=== PATIENT | male | born 1990 | race Two or more races ===

== ENCOUNTER 2021-06-21 02:10 | Inpatient (IN) | payer SELFPAY ==
[~2021-06-21] VITALS: Ht 167.6 cm; Wt 95.3 kg
--- NOTE | 2021-06-21 02:25 | PHYS DOC ---
General Adult HPI: HPI: Patient is a 31 year old male presents to the ER with left-sided arm pain. Patient states that he believes he was bit by an insect on the posterior portion of his right upper arm. Patient states that since then the pain has been extending reports chills and fevers. Denies any drainage. Patient states that the pain takes his breath away. Review of Systems: Review of Systems: Constitutional: Denies fever or chills. [] Eyes: Denies change in visual acuity. [] HENT: Denies nasal congestion or sore throat. [] Respiratory: Denies cough or shortness of breath. [] Cardiovascular: Denies chest pain or edema. [] GI: Denies abdominal pain, nausea, vomiting, bloody stools or diarrhea. [] : Denies dysuria. [] Musculoskeletal: Denies back pain or joint pain. [] Integument: Cellulitis of the left arm denies rash. [] Neurologic: Denies headache, focal weakness or sensory changes. [] Endocrine: Denies polyuria or polydipsia. [] Lymphatic: Denies swollen glands. [] Psychiatric: Denies depression or anxiety. [] Heart Score: C/O Chest Pain: No Risk Factors: Risk Factors: DM, Current or recent (<one month) smoker, HTN, HLP, family history of CAD, obesity. Risk Scores: Score 0 - 3: 2.5% MACE over next 6 weeks - Discharge Home Score 4 - 6: 20.3% MACE over next 6 weeks - Admit for Clinical Observation Score 7 - 10: 72.7% MACE over next 6 weeks - Early Invasive Strategies Current Medications: Current Medications Medications (Trade) Dose Ordered Sig/Arthur Start Time Stop Time Status Last Admin Dose Admin Ampicillin Sodium/ Sulbactam Sodium 3 gm/Sodium Chloride 100 ml @ 200 mls/hr 1X ONCE 06/21/21 02:30 06/21/21 02:59 UNV Diphenhydramine HCl (Benadryl) 25 mg 1X ONCE 06/21/21 02:30 06/21/21 02:31 UNV Ketorolac Tromethamine (Toradol 15mg Vial) 15 mg 1X ONCE 06/21/21 02:30 06/21/21 02:31 UNV Morphine Sulfate (Morphine Sulfate) 4 mg 1X ONCE 06/21/21 02:30 06/21/21 02:31 UNV Sodium Chloride 1,000 ml @ 100 mls/hr Q10H 06/21/21 02:30 06/21/21 12:29 UNV Vancomycin HCl (Vanco Per Pharmacy) 1 each 1X ONCE 06/21/21 02:30 06/21/21 02:31 UNV Physical Exam: PE: Constitutional: Well developed, well nourished, no acute distress, non-toxic appearance. Uncomfortable HENT: Normocephalic, atraumatic, bilateral external ears normal, oropharynx moist, no oral exudates, nose normal. [] Eyes: PERRLA, EOMI, conjunctiva normal, no discharge. [] Neck: Normal range of motion, no tenderness, supple, no stridor. [] Cardiovascular:Heart rate regular rhythm, no murmur [] Lungs & Thorax: Bilateral breath sounds clear to auscultation [] Abdomen: Bowel sounds normal, soft, no tenderness, no masses, no pulsatile masses. [] Skin: Patient has petechia surrounding the initial bite site with extensive erythema on the tricep and posterior portion of the forearm. Back: No tenderness, no CVA tenderness. [] Extremities: No tenderness, no cyanosis, no clubbing, ROM intact, no edema. [] Neurologic: Alert and oriented X 3, normal motor function, normal sensory function, no focal deficits noted. [] Psychologic: Affect normal, judgement normal, mood normal. [] Current Patient Data: Labs: Laboratory Tests Test 06/21/21 02:30 White Blood Count 7.4 x10^3/uL Red Blood Count 4.87 x10^6/uL Hemoglobin 13.8 g/dL Hematocrit 42.0 % Mean Corpuscular Volume 86 fL Mean Corpuscular Hemoglobin 28 pg Mean Corpuscular Hemoglobin Concent 33 g/dL Red Cell Distribution Width 13.5 % Platelet Count 214 x10^3/uL Neutrophils (%) (Auto) 62 % Lymphocytes (%) (Auto) 27 % Monocytes (%) (Auto) 7 % Eosinophils (%) (Auto) 4 % Basophils (%) (Auto) 1 % Neutrophils # (Auto) 4.6 x10^3/uL Lymphocytes # (Auto) 2.0 x10^3/uL Monocytes # (Auto) 0.5 x10^3/uL Eosinophils # (Auto) 0.3 x10^3/uL Basophils # (Auto) 0.0 x10^3/uL Erythrocyte Sedimentation Rate 12 Sodium Level 136 mmol/L Potassium Level 3.6 mmol/L Chloride Level 102 mmol/L Carbon Dioxide Level 27 mmol/L Anion Gap 7 Blood Urea Nitrogen 12 mg/dL Creatinine 1.1 mg/dL Estimated GFR (Cockcroft-Gault) 78.1 BUN/Creatinine Ratio 11 Glucose Level 128 mg/dL Calcium Level 9.1 mg/dL Total Bilirubin 0.4 mg/dL Aspartate Amino Transf (AST/SGOT) 44 U/L Alanine Aminotransferase (ALT/SGPT) 67 U/L Alkaline Phosphatase 52 U/L C-Reactive Protein, Quantitative 14.5 mg/L Total Protein 8.2 g/dL Albumin 3.7 g/dL Albumin/Globulin Ratio 0.8 Current Medications Medications (Trade) Dose Ordered Sig/Arthur Route PRN Reason Start Time Stop Time Status Last Admin Dose Admin Ampicillin Sodium/ Sulbactam Sodium 3 gm/Sodium Chloride 100 ml @ 200 mls/hr 1X ONCE IV 06/21/21 03:00 06/21/21 03:29 Cancel Vancomycin HCl (Vanco Per Pharmacy) 1 each 1X ONCE MC 06/21/21 02:30 06/21/21 02:50 DC Sodium Chloride 1,000 ml @ 100 mls/hr Q10H IV 06/21/21 02:30 06/21/21 12:29 06/21/21 02:51 Morphine Sulfate (Morphine Sulfate) 4 mg 1X ONCE IVP 06/21/21 02:30 06/21/21 02:37 DC 06/21/21 02:53 Ketorolac Tromethamine (Toradol 15mg Vial) 15 mg 1X ONCE IVP 06/21/21 02:30 06/21/21 02:37 DC 06/21/21 02:52 Diphenhydramine HCl (Benadryl) 25 mg 1X ONCE IVP 06/21/21 02:30 06/21/21 02:37 DC 06/21/21 02:51 Ampicillin Sodium/ Sulbactam Sodium 3 gm/Dextrose 100 ml @ 200 mls/hr 1X ONCE IV 06/21/21 03:00 06/21/21 03:29 DC 06/21/21 02:52 Vancomycin HCl 2 gm/Sodium Chloride 500 ml @ 250 mls/hr ONCE ONCE IV 06/21/21 03:15 06/21/21 05:14 06/21/21 03:36 EKG: EKG: [] Radiology/Procedures: Radiology/Procedures: []Indication: Cellulitis. Arm pain. Comparison: None. Findings: No fracture or aggressive osseous process. No malalignment at the elbow or shoulder. Reticulation of the subcutaneous fat best appreciated at the anteromedial upper arm extending down to the medial humeral epicondyle. Impression: Reticulation of the subcutaneous fat at the anteromedial upper arm could represent the reported cellulitis. No acute osseous abnormality. Course & Med Decision Making: Course & Med Decision Making Pertinent Labs and Imaging studies reviewed. (See chart for details) []skin has been marked on border of cellulitis Chelo Disclaimer: Chelo Disclaimer: This electronic medical record was generated, in whole or in part, using a voice recognition dictation system. Departure Departure Impression: Primary Impression: Cellulitis Disposition: ADMITTED INPATIENT Condition: STABLE FABIANA SYKES DO Jun 21, 2021 02:25
[2021-06-21] MEDS ORDERED: IV NORMAL SALINE 1000ML BAG 1,000 ML IV SCH (02:30)
[2021-06-21] MEDS ORDERED: KETOROLAC 15 MG/ML VIAL. IVP ONE (02:30)
[2021-06-21] MEDS ORDERED: MORPHINE SULFATE 4 MG/ML INJ. IVP ONE (02:30)
[2021-06-21] MEDS ORDERED: diphenhydrAMINE 50 MG/ML VIAL IVP ONE (02:30)
[2021-06-21] MEDS ORDERED: VANCOMYCIN PER PHARMACY MC ONE (02:30)
[2021-06-21 02:45] LABS: BASO % 1 % (0-3); EOS # 0.3 x10^3/uL (0.0-0.7); EOS % 4 % (0-3); HEMOGLOBIN 13.8 g/dL (13.0-17.5); LYMPH % 27 % (24-48); MEAN CORPUSCULAR HEMOGLOBIN 28 pg (25-35); MEAN CORPUSCULAR HGB CONC 33 g/dL (31-37); MEAN CORPUSCULAR VOLUME 86 fL (79-100); MONO # 0.5 x10^3/uL (0.0-1.1); MONO % 7 % (0-9); NEUT # 4.6 x10^3/uL (1.8-7.7); NEUT % 62 % (31-73); PLATELET COUNT 214 x10^3/uL (140-400); RED BLOOD COUNT 4.87 x10^6/uL (4.30-5.70); RED CELL DISTRIBUTION WIDTH 13.5 % (11.5-14.5); WHITE BLOOD COUNT 7.4 x10^3/uL (4.0-11.0)
[2021-06-21 02:54] LABS: CALCIUM 9.1 mg/dL (8.5-10.1); CREATININE 1.1 mg/dL (0.7-1.3); GFR 78.1; POTASSIUM 3.6 mmol/L (3.5-5.1)
[2021-06-21 02:59] LABS: ALBUMIN 3.7 g/dL (3.4-5.0); ALBUMIN/GLOBULIN RATIO 0.8 (1.0-1.7); C-REACTIVE PROTEIN 14.5 mg/L (0-3.3); TOTAL BILIRUBIN 0.4 mg/dL (0.2-1.0); TOTAL PROTEIN 8.2 g/dL (6.4-8.2)
[2021-06-21] MEDS ORDERED: AMPICILLIN/SULBACTAM 3 GM in IV NORMAL SALINE 100ML 100 ML IV ONE (03:00)
[2021-06-21] MEDS ORDERED: AMPICILLIN/SULBACTAM 3 GM in IV DEXTROSE 5% 100ML 100 ML IV ONE (03:00)
--- NOTE | 2021-06-21 03:13 | RAD ---
Study: XR HUMERUS_LT 2 VIEWS Indication: Cellulitis. Arm pain. Comparison: None. Findings: No fracture or aggressive osseous process. No malalignment at the elbow or shoulder. Reticulation of the subcutaneous fat best appreciated at the anteromedial upper arm extending down to the medial geri ral epicondyle. Impression: Reticulation of the subcutaneous fat at the anteromedial upper arm could represent the reported cellu litis. No acute osseous abnormality. Electronically signed by: LIUDMILA GARRIDO MD (06/21/2021 3:10 AM) [facility]
[2021-06-21] MEDS ORDERED: VANCOMYCIN 2 GM in IV NORMAL SALINE 500ML BAG 500 ML IV ONE (03:15)
[2021-06-21 05:17] VITALS: BP 186/118
[2021-06-21 07:00] VITALS: BP 153/85
--- NOTE | 2021-06-21 07:28 | PDOC1 ---
History and Physical Date of Admission Date of Admission DATE: 06/21/21 TIME: 07:25 Identification/Chief Complaint Chief Complaint Left arm pain Source Source: Patient History of Present Illness History of Present Illness Mr Kirk is a 31 year old male Fahad speaking presents to the ER with left- sided arm pain. Patient states that he believes he was bit by an insect on the posterior portion of his right upper arm. Patient states that since then the pain has been extending reports chills and fevers. Denies any drainage. Patient states that the pain takes his breath away. 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 I can identify the spider as a brown recluse. Left arm radiograph with no discrete abscess visible subcutaneous changes consistent with cellulitis. Labs with WBC 7.4, Hb 13.8, platelets 214, NA 136, K3.6, BUN 12, CR 1.1, glucose 128, calcium 9.1 bilirubin 0.4 AST 44, ALT 67, alkaline phosphatase 52, CRP 14.5, albumin 3.7 Due to the significant extent of the cellulitis including the left axilla and going beyond the elbow and central necrosis admitted for further care and IV antibiotics Past Medical History Cardiovascular: HTN Endocrine: Diabetes Past Surgical History Past Surgical History: No pertinent history Social History Smoke: No ALCOHOL: none Drugs: None Current Problem List Problem List Problems Medical Problems: (1) Cellulitis Status: Acute Current Medications Current Medications Current Medications Ampicillin Sodium/ Sulbactam Sodium 3 gm/Sodium Chloride 100 ml @ 200 mls/hr 1X ONCE IV ; Start 06/21/21 at 03:00; Stop 06/21/21 at 03:29; Status Cancel Vancomycin HCl (Vanco Per Pharmacy) 1 each 1X ONCE MC ; Start 06/21/21 at 02:30; Stop 06/21/21 at 02:50; Status DC Sodium Chloride 1,000 ml @ 100 mls/hr Q10H IV Last administered on 06/21/21at 02:51; Start 06/21/21 at 02:30; Stop 06/21/21 at 12:29 Morphine Sulfate (Morphine Sulfate) 4 mg 1X ONCE IVP Last administered on 06/21/21at 02:53; Start 06/21/21 at 02:30; Stop 06/21/21 at 02:37; Status DC Ketorolac Tromethamine (Toradol 15mg Vial) 15 mg 1X ONCE IVP Last administered on 06/21/21at 02:52; Start 06/21/21 at 02:30; Stop 06/21/21 at 02:37; Status DC Diphenhydramine HCl (Benadryl) 25 mg 1X ONCE IVP Last administered on at 02:51; Start 06/21/21 at 02:30; Stop 06/21/21 at 02:37; Status DC Ampicillin Sodium/ Sulbactam Sodium 3 gm/Dextrose 100 ml @ 200 mls/hr 1X ONCE IV Last administered on 06/21/21at 02:52; Start 06/21/21 at 03:00; Stop 06/21/21 at 03:29; Status DC Vancomycin HCl 2 gm/Sodium Chloride 500 ml @ 250 mls/hr ONCE ONCE IV Last administered on 06/21/21at 03:36; Start 06/21/21 at 03:15; Stop 06/21/21 at 05:14; Status DC Allergies Allergies: Coded Allergies: No Known Drug Allergies (Unverified , 06/21/21) ROS General: YES: Fatigue, Malaise; No: Chills, Night Sweats, Appetite, Other PSYCHOLOGICAL ROS: No: Anxiety, Behavioral Disorder, Concentration difficultie, Decreased libido, Depression, Disorientation, Hallucinations, Hostility, Irritablity, Memory difficulties, Mood Swings, Obsessive thoughts, Physical abuse, Sexual abuse, Sleep disturbances, Suicidal ideation, Other Eyes: No Blurry vision, No Decreased vision, No Double vision, No Dry eyes, No Excessive tearing, No Eye Pain, No Itchy Eyes, No Loss of vision, No Photophobia, No Scotomata, No Uses contacts, No Uses glasses, No Other HEENT: No: Heacaches, Visual Changes, Hearing change, Nasal congestion, Nasal discharge, Oral lesions, Sinus pain, Sore Throat, Epistaxis, Sneezing, Snoring, Tinnitus, Vertigo, Vocal changes, Other ALLERGY AND IMMUNOLOGY: No: Hives, Insect Bite Sensitivity, Itchy/Watery Eyes, Nasal Congestion, Post Nasal Drip, Seasonal Allergies, Other Hematological and Lymphatic: No: Bleeding Problems, Blood Clots, Blood Transfusions, Brusing, Night Sweats, Pallor, Swollen Lymph Nodes, Other ENDOCRINE: No: Breast Changes, Galactorrhea, Hair Pattern Changes, Hot Flashes, Malaise/lethargy, Mood Swings, Palpitations, Polydipsia/polyuria, Skin Changes, Temperature Intolerance, Unexpected Weight Changes, Other Breast: No New/Changing Breast Lumps, No Nipple changes, No Nipple discharge, No Other Respiratory: No: Cough, Hemoptysis, Orthopnea, Pleuritic Pain, Shortness of breath, SOB with excertion, Sputum Changes, Stridor, Tachypnea, Wheezing, Other Cardiovascular: No Chest Pain, No Palpitations, No Orthopnea, No Paroxysmal Noc. Dyspnea, No Edema, No Lt Headedness, No Other Gastrointestinal: No Nausea, No Vomiting, No Abdominal Pain, No Diarrhea, No Constipation, No Melena, No Hematochezia, No Other Genitourinary: No Dysuria, No Frequency, No Incontinence, No Hematuria, No Retention, No Discharge, No Urgency, No Pain, No Flank Pain, No Other, No , No , No , No , No , No , No Musculoskeletal: No Gait Disturbance, No Joint Pain, No Joint Stiffness, No Joint Swelling, No Muscle Pain, No Muscular Weakness, No Pain In:, No Swelling In:, No Other Neurological: No Behavorial Changes, No Bowel/Bladder ControlChng, No Confusion, No Dizziness, No Gait Disturbance, No Headaches, No Impaired Coord /balance, No Memory Loss, No Numbness/Tingling, No Seizures, No Speech Problems, No Tremors, No Visual Changes, No Weakness, No Other Skin: Yes Rash, Yes Skin Lesion Changes; No Dry Skin, No Eczema, No Hair Changes, No Lumps, No Mole Changes, No Mottling, No Nail Changes, No Pruritus, No Other, No Acne Physical Exam General: Alert, Oriented X3, Cooperative, No acute distress HEENT: Atraumatic, PERRLA, EOMI, Mucous membr. moist/pink Lungs: Clear to auscultation, Normal air movement Heart: S1S2, RRR, no thrills, no rubs, no gallops, no murmurs Abdomen: Normal bowel sounds, Soft, No tenderness, No hepatosplenomegaly, No masses Rectal Exam: not examined Extremities: No clubbing, No cyanosis, No edema, Normal pulses, Other (left axillary swelling, tenderness) Skin: Other (Well-circumscribed mid upper arm axillary red warm cellulitic area extending to axilla and beyond the elbow with 2 x 4 cm area of central necrosis.) Neuro: Normal gait, Normal speech, Strength at 5/5 X4 ext, Normal tone, Sensa tion intact, Cranial nerves 3-12 NL, Reflexes 2+ Psych/Mental Status: Mental status NL, Mood NL Vitals Vitals Vital Signs Date Time Temp Pulse Resp B/P (MAP) Pulse Ox O2 Delivery O2 Flow Rate FiO2 06/21/21 05:58 Room Air 06/21/21 05:17 99.3 83 22 186/118 (140) 99 99.3 Labs Labs Laboratory Tests Test 06/21/21 02:30 White Blood Count 7.4 x10^3/uL (4.0-11.0) Red Blood Count 4.87 x10^6/uL (4.30-5.70) Hemoglobin 13.8 g/dL (13.0-17.5) Hematocrit 42.0 % (39.0-53.0) Mean Corpuscular Volume 86 fL (79-100) Mean Corpuscular Hemoglobin 28 pg (25-35) Mean Corpuscular Hemoglobin Concent 33 g/dL (31-37) Red Cell Distribution Width 13.5 % (11.5-14.5) Platelet Count 214 x10^3/uL (140-400) Neutrophils (%) (Auto) 62 % (31-73) Lymphocytes (%) (Auto) 27 % (24-48) Monocytes (%) (Auto) 7 % (0-9) Eosinophils (%) (Auto) 4 % (0-3) Basophils (%) (Auto) 1 % (0-3) Neutrophils # (Auto) 4.6 x10^3/uL (1.8-7.7) Lymphocytes # (Auto) 2.0 x10^3/uL (1.0-4.8) Monocytes # (Auto) 0.5 x10^3/uL (0.0-1.1) Eosinophils # (Auto) 0.3 x10^3/uL (0.0-0.7) Basophils # (Auto) 0.0 x10^3/uL (0.0-0.2) Erythrocyte Sedimentation Rate 12 (0-15) Sodium Level 136 mmol/L (136-145) Potassium Level 3.6 mmol/L (3.5-5.1) Chloride Level 102 mmol/L (98-107) Carbon Dioxide Level 27 mmol/L (21-32) Anion Gap 7 (6-14) Blood Urea Nitrogen 12 mg/dL (8-26) Creatinine 1.1 mg/dL (0.7-1.3) Estimated GFR (Cockcroft-Gault) 78.1 BUN/Creatinine Ratio 11 (6-20) Glucose Level 128 mg/dL (70-99) Calcium Level 9.1 mg/dL (8.5-10.1) Total Bilirubin 0.4 mg/dL (0.2-1.0) Aspartate Amino Transf (AST/SGOT) 44 U/L (15-37) Alanine Aminotransferase (ALT/SGPT) 67 U/L (16-63) Alkaline Phosphatase 52 U/L (46-116) C-Reactive Protein, Quantitative 14.5 mg/L (0-3.3) Total Protein 8.2 g/dL (6.4-8.2) Albumin 3.7 g/dL (3.4-5.0) Albumin/Globulin Ratio 0.8 (1.0-1.7) Laboratory Tests Test 06/21/21 02:30 White Blood Count 7.4 x10^3/uL (4.0-11.0) Red Blood Count 4.87 x10^6/uL (4.30-5.70) Hemoglobin 13.8 g/dL (13.0-17.5) Hematocrit 42.0 % (39.0-53.0) Mean Corpuscular Volume 86 fL (79-100) Mean Corpuscular Hemoglobin 28 pg (25-35) Mean Corpuscular Hemoglobin Concent 33 g/dL (31-37) Red Cell Distribution Width 13.5 % (11.5-14.5) Platelet Count 214 x10^3/uL (140-400) Neutrophils (%) (Auto) 62 % (31-73) Lymphocytes (%) (Auto) 27 % (24-48) Monocytes (%) (Auto) 7 % (0-9) Eosinophils (%) (Auto) 4 % (0-3) Basophils (%) (Auto) 1 % (0-3) Neutrophils # (Auto) 4.6 x10^3/uL (1.8-7.7) Lymphocytes # (Auto) 2.0 x10^3/uL (1.0-4.8) Monocytes # (Auto) 0.5 x10^3/uL (0.0-1.1) Eosinophils # (Auto) 0.3 x10^3/uL (0.0-0.7) Basophils # (Auto) 0.0 x10^3/uL (0.0-0.2) Erythrocyte Sedimentation Rate 12 (0-15) Sodium Level 136 mmol/L (136-145) Potassium Level 3.6 mmol/L (3.5-5.1) Chloride Level 102 mmol/L (98-107) Carbon Dioxide Level 27 mmol/L (21-32) Anion Gap 7 (6-14) Blood Urea Nitrogen 12 mg/dL (8-26) Creatinine 1.1 mg/dL (0.7-1.3) Estimated GFR (Cockcroft-Gault) 78.1 BUN/Creatinine Ratio 11 (6-20) Glucose Level 128 mg/dL (70-99) Calcium Level 9.1 mg/dL (8.5-10.1) Total Bilirubin 0.4 mg/dL (0.2-1.0) Aspartate Amino Transf (AST/SGOT) 44 U/L (15-37) Alanine Aminotransferase (ALT/SGPT) 67 U/L (16-63) Alkaline Phosphatase 52 U/L (46-116) C-Reactive Protein, Quantitative 14.5 mg/L (0-3.3) Total Protein 8.2 g/dL (6.4-8.2) Albumin 3.7 g/dL (3.4-5.0) Albumin/Globulin Ratio 0.8 (1.0-1.7) Images Images XR HUMERUS_LT 2 VIEWS Indication: Cellulitis. Arm pain. Comparison: None. Findings: No fracture or aggressive osseous process. No malalignment at the elbow or shoulder. Reticulation of the subcutaneous fat best appreciated at the anteromedial upper arm extending down to the medial humeral epicondyle. Impression: Reticulation of the subcutaneous fat at the anteromedial upper arm could represent the reported cellulitis. No acute osseous abnormality. VTE Prophylaxis Ordered VTE Prophylaxis Devices: No VTE Pharmacological Prophylaxi: Yes Assessment/Plan Assessment/Plan Left arm cellulitis -very extensive crossing the joint space would fail outpat ient antibiotics needs IV vancomycin and continue Unasyn. ID was consulted in the ED. Discussed with pharmacy to dose vancomycin Spider bite -per patient and a family member who is bilingual they took a picture and this is a brown recluse spider we will start dapsone. Discussed need for G6PD testing with ID. DM2 -unknown A1c Will place on sliding scale insulin HTN - reconcile home meds Transaminitis - no clear etiology, will trend and check hepatitis panel if elevated FEN - ADA diet PPX - heparin FULL CODE Dispo - inpatient Justifications for Admission Other Justification FRANSISCA HAUSER MD Jun 21, 2021 07:28
[2021-06-21 11:00] VITALS: BP 137/77
[2021-06-21] MEDS: AMPICILLIN/SULBACTAM 3 GM in IV NORMAL SALINE 100ML 100 ML IV SCH ×3 (11:13→23:43)
[2021-06-21] MEDS ORDERED: IV DEXTROSE 5% 250 ML BAG. IV PRN (11:45)
[2021-06-21] MEDS ORDERED: VANCOMYCIN PER PHARMACY MC PRN (11:45)
[2021-06-21] MEDS ORDERED: DEXTROSE 50% 25 GM / 50ML DISP.SYRIN. IV PRN (11:45)
--- NOTE | 2021-06-21 12:54 | NUR ---
Pharmacy Vancomycin Dosing Note S:Consulted to monitor and dose vancomycin started 06/21/21. O:CANDIDA CHAN is a 31 year old M with Cellulitis . Height: 5 feet, 6 inches Weight: 97.0 kg Other Antibiotics: UNASYN LABS: Last BUN: 12 Last Creatinine: 1.1 Creatinine Clearance: 88 mL/min Last WBC: 7.4 Tmax (past 24 hours): 99.3 Microbiology: NONE Last dose given 06/21/21 at 0336 Vancomycin Dosing: Loading Dose: 2000 mg x1 Dosing Weight: Actual Target Trough: 10-20 P: 1. Vancomycin 1500 mg IV q12h 2. Follow up Trough level on 06/22/21 at 1430 3. Pharmacy will continue to monitor, follow and adjust therapy as needed. PARKER MIN RPH, 06/21/21 [id number]
[2021-06-21] MEDS: DAPSONE 25 MG PO SCH (13:46)
[2021-06-21] MEDS ORDERED: traMADol 50 MG TABLET PO PRN (14:45)
[2021-06-21] MEDS ORDERED: ONDANSETRON PF 4 MG/2 ML VIAL. IVP PRN (14:45)
[2021-06-21] MEDS ORDERED: ACETAMINOPHEN 325 MG TABLET. PO PRN (14:45)
[2021-06-21] MEDS: VANCOMYCIN 1.5 GM in IV NORMAL SALINE 500ML BAG 500 ML IV SCH (14:51)
[2021-06-21 15:00] VITALS: BP 144/97
[2021-06-21] MEDS: INSULIN LISPRO 300 UNITS/3 ML VIAL. SQ SCH (16:30)
[2021-06-21 19:00] VITALS: BP 153/101
[2021-06-21] MEDS: ENOXAPARIN 40 MG/0.4 ML SYRINGE. SQ SCH (19:35)
[2021-06-21 23:00] VITALS: BP 125/76
[2021-06-22] MEDS: VANCOMYCIN 1.5 GM in IV NORMAL SALINE 500ML BAG 500 ML IV SCH ×2 (02:47→15:30)
[2021-06-22 03:00] VITALS: BP 140/100
--- NOTE | 2021-06-22 04:33 | CONS ---
DATE OF CONSULTATION: 06/21/2021 REQUESTING PHYSICIAN: Dr. Johns. REASON FOR CONSULTATION: Spider bite. HISTORY OF PRESENT ILLNESS: This is a 31-year-old French gentleman who came in with left underarm pain and discoloration. The patient last Friday, he saw a spider and that is what he thinks is bit him. The patient denies any fever, denies any nausea, vomiting, diarrhea, chest pain, shortness of breath, abdominal pain, urinary symptoms or bowel symptoms. PAST MEDICAL HISTORY: Positive for hypertension and diabetes. ALLERGIES: No known drug allergies. SOCIAL HISTORY: Negative for smoking, alcohol, drug use. CURRENT MEDICATIONS: The patient is on dapsone, vancomycin, and Unasyn. REVIEW OF SYSTEMS: As in HPI. All other systems reviewed and are negative. PHYSICAL EXAMINATION: GENERAL: Alert, oriented gentleman, not in distress. VITAL SIGNS: Stable, afebrile. HEENT: NAD. NECK: Supple, no JVP, no lymphadenopathy. LUNGS: Clear. HEART: S1, S2, regular. ABDOMEN: Benign. EXTREMITIES: No edema or cyanosis. SKIN: Unremarkable except left proximal humerus medially has a large area of necrotic wound, has a classic look for spider bite with induration, also tenderness and some erythema. NEUROLOGIC: The patient is alert, awake, and appropriate. No focal neurologic deficit. LABORATORY DATA: White count is normal. BUN and creatinine is normal. ALT, AST is 67 and 44. X-ray was unremarkable. IMPRESSION: 1. Left upper arm spider bite. 2. Diabetes. 3. Hypertension. RECOMMENDATIONS: Continue dapsone, probably should do the G6PD. Vancomycin and Unasyn can be discontinued. Thank you very much, Dr. Johns, for giving me opportunity to participate in this patient's care. SRTrung/TISHA/GUR : MAHOGANY/ganga TID: [id number]
[2021-06-22] MEDS: AMPICILLIN/SULBACTAM 3 GM in IV NORMAL SALINE 100ML 100 ML IV SCH ×4 (05:32→23:46)
[2021-06-22 07:00] VITALS: BP 121/76
[2021-06-22] MEDS: INSULIN LISPRO 300 UNITS/3 ML VIAL. SQ SCH ×3 (07:30→16:30)
[2021-06-22 08:09] LABS: BASO % 0 % (0-3); EOS # 0.2 x10^3/uL (0.0-0.7); EOS % 4 % (0-3); HEMOGLOBIN 12.8 g/dL (13.0-17.5); LYMPH # 1.4 x10^3/uL (1.0-4.8); LYMPH % 22 % (24-48); MEAN CORPUSCULAR HEMOGLOBIN 28 pg (25-35); MEAN CORPUSCULAR HGB CONC 34 g/dL (31-37); MEAN CORPUSCULAR VOLUME 84 fL (79-100); MONO # 0.3 x10^3/uL (0.0-1.1); MONO % 5 % (0-9); NEUT # 4.7 x10^3/uL (1.8-7.7); NEUT % 70 % (31-73); PLATELET COUNT 225 x10^3/uL (140-400); RED BLOOD COUNT 4.51 x10^6/uL (4.30-5.70); RED CELL DISTRIBUTION WIDTH 13.2 % (11.5-14.5); WHITE BLOOD COUNT 6.7 x10^3/uL (4.0-11.0)
[2021-06-22 08:40] LABS: ALBUMIN 3.6 g/dL (3.4-5.0); ALBUMIN/GLOBULIN RATIO 0.8 (1.0-1.7); CALCIUM 9.2 mg/dL (8.5-10.1); GFR 87.2; POTASSIUM 3.7 mmol/L (3.5-5.1); TOTAL BILIRUBIN 0.5 mg/dL (0.2-1.0); TOTAL PROTEIN 8.1 g/dL (6.4-8.2)
[2021-06-22] MEDS: DAPSONE 25 MG PO SCH (09:33)
[2021-06-22 11:00] VITALS: BP 140/86
--- NOTE | 2021-06-22 12:33 | PDOC ---
[facility] PROGRESS NOTE Date of Service DOS: DATE: 06/22/21 TIME: 12:29 Chief Complaint Chief Complaint Left arm cellulitis -very extensive crossing the joint space would fail outpatient antibiotics needs IV vancomycin and continue Unasyn. ID was consulted in the ED. Discussed with pharmacy to dose vancomycin Spider bite -per patient and a family member who is bilingual they took a picture and this is a brown recluse spider we will start dapsone. Discussed need for G6PD testing with ID. DM2 -unknown A1c Will place on sliding scale insulin HTN - reconcile home meds Transaminitis - no clear etiology, will trend and check hepatitis panel if elevated FEN - ADA diet PPX - heparin FULL CODE Dispo - inpatient History of Present Illness History of Present Illness Mr Kirk is a 31 year old male Chuukese speaking presents to the ER with left- sided arm pain. Patient states that he believes he was bit by an insect on the posterior portion of his right upper arm. Patient states that since then the pain has been extending reports chills and fevers. Denies any drainage. Patient states that the pain takes his breath away. 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 I can identify the spider as a brown recluse. Left arm radiograph with no discrete abscess visible subcutaneous changes consistent with cellulitis. Labs with WBC 7.4, Hb 13.8, platelets 214, NA 136, K3.6, BUN 12, CR 1.1, glucose 128, calcium 9.1 bilirubin 0.4 AST 44, ALT 67, alkaline phosphatase 52, CRP 14.5, albumin 3.7 Due to the significant extent of the cellulitis including the left axilla and going beyond the elbow and central necrosis admitted for further care and IV antibiotics 06/22: Have a little bit of nausea. Bite with central necrosis seen was cellulitic redness seems to be improving. No longer going to be on his left elbow now. Having some GI discomfort today we will add lactobacillus. Vitals/I&O Vitals/I&O: Vital Signs Date Time Temp Pulse Resp B/P (MAP) Pulse Ox O2 Delivery O2 Flow Rate FiO2 06/22/21 08:00 Room Air 06/22/21 07:00 97.9 74 16 121/76 (91) 100 97.9 I & O 06/21/21 06/21/21 06/22/21 15:00 23:00 07:00 Intake Total 600 ml Output Total 550 ml Balance 600 ml -550 ml Physical Exam General: Alert, Oriented X3, Cooperative, No acute distress Abdomen: Normal bowel sounds, Soft, No tenderness, No hepatosplenomegaly, No masses Extremities: No clubbing, No cyanosis, No edema, Normal pulses, Other (left axillary swelling, tenderness) Skin: Other (Well-circumscribed mid upper arm axillary red warm cellulitic area extending to axilla and beyond the elbow with 2 x 4 cm area of central necrosis.) Labs Labs: Laboratory Tests Test 06/21/21 16:55 06/21/21 20:12 06/22/21 07:10 06/22/21 07:33 Glucose (Fingerstick) 126 mg/dL (70-99) 130 mg/dL (70-99) 138 mg/dL (70-99) White Blood Count 6.7 x10^3/uL (4.0-11.0) Red Blood Count 4.51 x10^6/uL (4.30-5.70) Hemoglobin 12.8 g/dL (13.0-17.5) Hematocrit 38.0 % (39.0-53.0) Mean Corpuscular Volume 84 fL (79-100) Mean Corpuscular Hemoglobin 28 pg (25-35) Mean Corpuscular Hemoglobin Concent 34 g/dL (31-37) Red Cell Distribution Width 13.2 % (11.5-14.5) Platelet Count 225 x10^3/uL (140-400) Neutrophils (%) (Auto) 70 % (31-73) Lymphocytes (%) (Auto) 22 % (24-48) Monocytes (%) (Auto) 5 % (0-9) Eosinophils (%) (Auto) 4 % (0-3) Basophils (%) (Auto) 0 % (0-3) Neutrophils # (Auto) 4.7 x10^3/uL (1.8-7.7) Lymphocytes # (Auto) 1.4 x10^3/uL (1.0-4.8) Monocytes # (Auto) 0.3 x10^3/uL (0.0-1.1) Eosinophils # (Auto) 0.2 x10^3/uL (0.0-0.7) Basophils # (Auto) 0.0 x10^3/uL (0.0-0.2) Sodium Level 138 mmol/L (136-145) Potassium Level 3.7 mmol/L (3.5-5.1) Chloride Level 101 mmol/L (98-107) Carbon Dioxide Level 27 mmol/L (21-32) Anion Gap 10 (6-14) Blood Urea Nitrogen 11 mg/dL (8-26) Creatinine 1.0 mg/dL (0.7-1.3) Estimated GFR (Cockcroft-Gault) 87.2 BUN/Creatinine Ratio 11 (6-20) Glucose Level 105 mg/dL (70-99) Calcium Level 9.2 mg/dL (8.5-10.1) Total Bilirubin 0.5 mg/dL (0.2-1.0) Aspartate Amino Transf (AST/SGOT) 91 U/L (15-37) Alanine Aminotransferase (ALT/SGPT) 126 U/L (16-63) Alkaline Phosphatase 55 U/L (46-116) Total Protein 8.1 g/dL (6.4-8.2) Albumin 3.6 g/dL (3.4-5.0) Albumin/Globulin Ratio 0.8 (1.0-1.7) Test 06/22/21 11:56 Glucose (Fingerstick) 160 mg/dL (70-99) Assessment and Plan Assessmemt and Plan Problems Medical Problems: (1) Cellulitis Status: Acute Comment Review of Relevant I have reviewed the following items jak (where applicable) has been applied. Medications: Current Medications Medications (Trade) Dose Ordered Sig/Arthur Route PRN Reason Start Time Stop Time Status Last Admin Dose Admin Dapsone (Aczone) 50 mg DAILY PO 06/21/21 13:00 06/25/21 09:01 06/22/21 09:33 Vancomycin HCl 1.5 gm/Sodium Chloride 500 ml @ 250 mls/hr Q12H IV 06/21/21 15:00 06/22/21 02:47 Justifications for Admission Other Justification FRANSISCA HAUSER MD Jun 22, 2021 12:33
--- NOTE | 2021-06-22 14:01 | PDOC ---
Infectious Disease Note Subjective Subjective pt is feeling good ROS ROS no n/v/d/sob Vital Sign Vital Signs Vital Signs Date Time Temp Pulse Resp B/P (MAP) Pulse Ox O2 Delivery O2 Flow Rate FiO2 06/22/21 08:00 Room Air 06/22/21 07:00 97.9 74 16 121/76 (91) 100 97.9 Physical Exam PHYSICAL EXAM GENERAL: Alert, oriented gentleman, not in distress. VITAL SIGNS: Stable, afebrile. HEENT: NAD. NECK: Supple, no JVP, no lymphadenopathy. LUNGS: Clear. HEART: S1, S2, regular. ABDOMEN: Benign. EXTREMITIES: No edema or cyanosis. SKIN: Unremarkable except left proximal humerus medially has a large area of necrotic wound, has a classic look for spider bite with induration, also tenderness and some erythema. NEUROLOGIC: The patient is alert, awake, and appropriate. No focal neurologic deficit. Labs Lab Laboratory Tests Test 06/21/21 16:55 06/21/21 20:12 06/22/21 07:10 06/22/21 07:33 Glucose (Fingerstick) 126 mg/dL (70-99) 130 mg/dL (70-99) 138 mg/dL (70-99) White Blood Count 6.7 x10^3/uL (4.0-11.0) Red Blood Count 4.51 x10^6/uL (4.30-5.70) Hemoglobin 12.8 g/dL (13.0-17.5) Hematocrit 38.0 % (39.0-53.0) Mean Corpuscular Volume 84 fL (79-100) Mean Corpuscular Hemoglobin 28 pg (25-35) Mean Corpuscular Hemoglobin Concent 34 g/dL (31-37) Red Cell Distribution Width 13.2 % (11.5-14.5) Platelet Count 225 x10^3/uL (140-400) Neutrophils (%) (Auto) 70 % (31-73) Lymphocytes (%) (Auto) 22 % (24-48) Monocytes (%) (Auto) 5 % (0-9) Eosinophils (%) (Auto) 4 % (0-3) Basophils (%) (Auto) 0 % (0-3) Neutrophils # (Auto) 4.7 x10^3/uL (1.8-7.7) Lymphocytes # (Auto) 1.4 x10^3/uL (1.0-4.8) Monocytes # (Auto) 0.3 x10^3/uL (0.0-1.1) Eosinophils # (Auto) 0.2 x10^3/uL (0.0-0.7) Basophils # (Auto) 0.0 x10^3/uL (0.0-0.2) Sodium Level 138 mmol/L (136-145) Potassium Level 3.7 mmol/L (3.5-5.1) Chloride Level 101 mmol/L (98-107) Carbon Dioxide Level 27 mmol/L (21-32) Anion Gap 10 (6-14) Blood Urea Nitrogen 11 mg/dL (8-26) Creatinine 1.0 mg/dL (0.7-1.3) Estimated GFR (Cockcroft-Gault) 87.2 BUN/Creatinine Ratio 11 (6-20) Glucose Level 105 mg/dL (70-99) Calcium Level 9.2 mg/dL (8.5-10.1) Total Bilirubin 0.5 mg/dL (0.2-1.0) Aspartate Amino Transf (AST/SGOT) 91 U/L (15-37) Alanine Aminotransferase (ALT/SGPT) 126 U/L (16-63) Alkaline Phosphatase 55 U/L (46-116) Total Protein 8.1 g/dL (6.4-8.2) Albumin 3.6 g/dL (3.4-5.0) Albumin/Globulin Ratio 0.8 (1.0-1.7) Hepatitis A IgM Antibody Nonreactive (Nonreactive) Hepatitis B Surface Antigen Nonreactive (Nonreactive) Hepatitis B Core IgM Antibody Nonreactive (Nonreactive) Hepatitis C IgG Antibody Nonreactive (Nonreactive) Test 06/22/21 11:56 Glucose (Fingerstick) 160 mg/dL (70-99) Micro Microbiology 06/21/21 Blood Culture - Preliminary, Resulted NO GROWTH AFTER 1 DAY Objective Assessment IMPRESSION: 1. Left upper arm spider bite. 2. Diabetes. 3. Hypertension. Plan Plan of Care cont supportive care OSCAR ROSADO MD Jun 22, 2021 14:01
[2021-06-22 15:00] VITALS: BP 148/91
[2021-06-22 17:10] LABS: VANC TR 6.9 mcg/mL (10.0-20.0)
[2021-06-22 19:54] VITALS: BP 140/86
[2021-06-22] MEDS: ENOXAPARIN 40 MG/0.4 ML SYRINGE. SQ SCH (20:23)
[2021-06-22] MEDS: LACTOBACILLUS RHAMNOSUS GG 1 CAPSULE. PO SCH (20:23)
[2021-06-22 23:31] VITALS: BP 155/120
[2021-06-23] MEDS: VANCOMYCIN 1.5 GM in IV NORMAL SALINE 500ML BAG 500 ML IV SCH ×2 (00:56→10:06)
[2021-06-23 03:38] VITALS: BP 109/53
[2021-06-23] MEDS: AMPICILLIN/SULBACTAM 3 GM in IV NORMAL SALINE 100ML 100 ML IV SCH (05:54)
[2021-06-23 07:22] VITALS: BP 144/107
[2021-06-23] MEDS: INSULIN LISPRO 300 UNITS/3 ML VIAL. SQ SCH ×2 (07:30→11:30)
--- NOTE | 2021-06-23 08:49 | PDOC ---
[facility] PROGRESS NOTE Date of Service DOS: DATE: 06/23/21 TIME: 08:48 Chief Complaint Chief Complaint Left arm cellulitis -very extensive crossing the joint space would fail outpatient antibiotics needs IV vancomycin and continue Unasyn. ID was consulted in the ED. Discussed with pharmacy to dose vancomycin Spider bite -per patient and a family member who is bilingual they took a picture and this is a brown recluse spider we will start dapsone. Discussed need for G6PD testing with ID. DM2 -unknown A1c Will place on sliding scale insulin HTN - reconcile home meds Transaminitis - no clear etiology, hepatitis panel negative FEN - ADA diet PPX - heparin FULL CODE Dispo - inpatient History of Present Illness History of Present Illness Mr Kirk is a 31 year old male Chuukese speaking presents to the ER with left- sided arm pain. Patient states that he believes he was bit by an insect on the posterior portion of his right upper arm. Patient states that since then the pain has been extending reports chills and fevers. Denies any drainage. Patient states that the pain takes his breath away. 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 I can identify the spider as a brown recluse. Left arm radiograph with no discrete abscess visible subcutaneous changes consistent with cellulitis. Labs with WBC 7.4, Hb 13.8, platelets 214, NA 136, K3.6, BUN 12, CR 1.1, glucose 128, calcium 9.1 bilirubin 0.4 AST 44, ALT 67, alkaline phosphatase 52, CRP 14.5, albumin 3.7 Due to the significant extent of the cellulitis including the left axilla and going beyond the elbow and central necrosis admitted for further care and IV antibiotics 06/22: Have a little bit of nausea. Bite with central necrosis seen was cellulitic redness seems to be improving. No longer going to be on his left elbow now. Having some GI discomfort today we will add lactobacillus. 06/23: Ambulating the unit. Vancomycin trough low at 6.9. Cellulitic area decrease seen and still with a central area of necrosis. No fluctuance at wound site. nausea improved. Vitals/I&O Vitals/I&O: Vital Signs Date Time Temp Pulse Resp B/P (MAP) Pulse Ox O2 Delivery O2 Flow Rate FiO2 06/23/21 07:22 98.9 67 20 144/107 (119) 99 Room Air 98.9 I & O 06/22/21 06/22/21 06/23/21 15:00 23:00 07:00 Intake Total 850 ml 850 ml 600 ml Balance 850 ml 850 ml 600 ml Physical Exam Physical Exam: GENERAL: Alert, oriented gentleman, not in distress. VITAL SIGNS: Stable, afebrile. HEENT: NAD. NECK: Supple, no JVP, no lymphadenopathy. LUNGS: Clear. HEART: S1, S2, regular. ABDOMEN: Benign. EXTREMITIES: No edema or cyanosis. SKIN: Unremarkable except left proximal humerus medially has a large area of necrotic wound, has a classic look for spider bite with induration, also tenderness and some erythema. NEUROLOGIC: The patient is alert, awake, and appropriate. No focal neurologic deficit. General: Alert, Oriented X3, Cooperative, No acute distress Abdomen: Normal bowel sounds, Soft, No tenderness, No hepatosplenomegaly, No masses Extremities: No clubbing, No cyanosis, No edema, Normal pulses, Other (left axillary swelling, tenderness) Skin: Other (Well-circumscribed mid upper arm axillary red warm cellulitic area extending to axilla and beyond the elbow with 2 x 4 cm area of central necrosis.) Labs Labs: Laboratory Tests Test 06/22/21 11:56 06/22/21 15:20 06/22/21 16:57 06/22/21 20:31 Glucose (Fingerstick) 160 mg/dL (70-99) 92 mg/dL (70-99) 110 mg/dL (70-99) Vancomycin Level Trough 6.9 mcg/mL (10.0-20.0) Vancomycin Last Dose Date Vancomycin Last Dose Time Test 06/23/21 08:10 Glucose (Fingerstick) 97 mg/dL (70-99) Assessment and Plan Assessmemt and Plan Problems Medical Problems: (1) Cellulitis Status: Acute Comment Review of Relevant I have reviewed the following items jak (where applicable) has been applied. Medications: Current Medications Medications (Trade) Dose Ordered Sig/Arthur Route PRN Reason Start Time Stop Time Status Last Admin Dose Admin Vancomycin HCl (Vancomycin Trough Level) 1 each 1X ONCE MC 06/22/21 14:30 06/22/21 14:31 DC 06/22/21 14:30 Lactobacillus Rhamnosus (Culturelle) 1 cap BID PO 06/22/21 21:00 06/22/21 20:23 Vancomycin HCl 1.5 gm/Sodium Chloride 500 ml @ 250 mls/hr Q8H IV 06/23/21 00:00 06/23/21 00:56 Justifications for Admission Other Justification FRANSISCA HAUSER MD Jun 23, 2021 08:49
[2021-06-23] MEDS: LACTOBACILLUS RHAMNOSUS GG 1 CAPSULE. PO SCH (10:05)
[2021-06-23] MEDS: DAPSONE 25 MG PO SCH (10:05)
[2021-06-23 11:00] VITALS: BP 161/107
[2021-06-23] MEDS ORDERED: DAPS25TA17 PO (12:14)
[2021-06-23] MEDS ORDERED: AMOX1TAB61 PO (12:14)
[2021-06-23] MEDS ORDERED: DOXY-181 PO (12:14)
--- NOTE | 2021-06-23 12:16 | PDOC3 ---
Discharge Summary Visit Information Date of Admission: Jun 21, 2021 Date of Discharge: Jun 23, 2021 Admitting Diagnosis: Brown recluse bite, cellulitis left arm Final Diagnosis Problems Medical Problems: (1) Cellulitis Status: Acute Brief Hospital Course Allergies Allergies Coded Allergies Type Severity Reaction Last Updated Verified No Known Drug Allergies 06/21/21 No Vital Signs Vital Signs Date Time Temp Pulse Resp B/P (MAP) Pulse Ox O2 Delivery O2 Flow Rate FiO2 06/23/21 08:00 Room Air 06/23/21 07:22 98.9 67 20 144/107 (119) 99 98.9 Lab Results Laboratory Tests Test 06/21/21 16:55 06/21/21 20:12 06/22/21 07:10 06/22/21 07:33 Glucose (Fingerstick) 126 mg/dL (70-99) 130 mg/dL (70-99) 138 mg/dL (70-99) White Blood Count 6.7 x10^3/uL (4.0-11.0) Red Blood Count 4.51 x10^6/uL (4.30-5.70) Hemoglobin 12.8 g/dL (13.0-17.5) Hematocrit 38.0 % (39.0-53.0) Mean Corpuscular Volume 84 fL (79-100) Mean Corpuscular Hemoglobin 28 pg (25-35) Mean Corpuscular Hemoglobin Concent 34 g/dL (31-37) Red Cell Distribution Width 13.2 % (11.5-14.5) Platelet Count 225 x10^3/uL (140-400) Neutrophils (%) (Auto) 70 % (31-73) Lymphocytes (%) (Auto) 22 % (24-48) Monocytes (%) (Auto) 5 % (0-9) Eosinophils (%) (Auto) 4 % (0-3) Basophils (%) (Auto) 0 % (0-3) Neutrophils # (Auto) 4.7 x10^3/uL (1.8-7.7) Lymphocytes # (Auto) 1.4 x10^3/uL (1.0-4.8) Monocytes # (Auto) 0.3 x10^3/uL (0.0-1.1) Eosinophils # (Auto) 0.2 x10^3/uL (0.0-0.7) Basophils # (Auto) 0.0 x10^3/uL (0.0-0.2) Sodium Level 138 mmol/L (136-145) Potassium Level 3.7 mmol/L (3.5-5.1) Chloride Level 101 mmol/L (98-107) Carbon Dioxide Level 27 mmol/L (21-32) Anion Gap 10 (6-14) Blood Urea Nitrogen 11 mg/dL (8-26) Creatinine 1.0 mg/dL (0.7-1.3) Estimated GFR (Cockcroft-Gault) 87.2 BUN/Creatinine Ratio 11 (6-20) Glucose Level 105 mg/dL (70-99) Calcium Level 9.2 mg/dL (8.5-10.1) Total Bilirubin 0.5 mg/dL (0.2-1.0) Aspartate Amino Transf (AST/SGOT) 91 U/L (15-37) Alanine Aminotransferase (ALT/SGPT) 126 U/L (16-63) Alkaline Phosphatase 55 U/L (46-116) Total Protein 8.1 g/dL (6.4-8.2) Albumin 3.6 g/dL (3.4-5.0) Albumin/Globulin Ratio 0.8 (1.0-1.7) Hepatitis A IgM Antibody Nonreactive (Nonreactive) Hepatitis B Surface Antigen Nonreactive (Nonreactive) Hepatitis B Core IgM Antibody Nonreactive (Nonreactive) Hepatitis C IgG Antibody Nonreactive (Nonreactive) Test 06/22/21 11:56 06/22/21 15:20 06/22/21 16:57 06/22/21 20:31 Glucose (Fingerstick) 160 mg/dL (70-99) 92 mg/dL (70-99) 110 mg/dL (70-99) Vancomycin Level Trough 6.9 mcg/mL (10.0-20.0) Vancomycin Last Dose Date Vancomycin Last Dose Time Test 06/23/21 08:10 06/23/21 12:00 Glucose (Fingerstick) 97 mg/dL (70-99) 87 mg/dL (70-99) Laboratory Tests Test 06/22/21 15:20 06/22/21 16:57 06/22/21 20:31 06/23/21 08:10 Vancomycin Level Trough 6.9 mcg/mL (10.0-20.0) Vancomycin Last Dose Date Vancomycin Last Dose Time Glucose (Fingerstick) 92 mg/dL (70-99) 110 mg/dL (70-99) 97 mg/dL (70-99) Test 06/23/21 12:00 Glucose (Fingerstick) 87 mg/dL (70-99) Brief Hospital Course Mr Kirk is a 31 year old male Joseese speaking presents to the ER with left- sided arm pain. Patient states that he believes he was bit by an insect on the posterior portion of his right upper arm. Patient states that since then the pain has been extending reports chills and fevers. Denies any drainage. Patient states that the pain takes his breath away. 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 I can identify the spider as a brown recluse. Left arm radiograph with no discrete abscess visible subcutaneous changes consistent with cellulitis. Labs with WBC 7.4, Hb 13.8, platelets 214, NA 136, K3.6, BUN 12, CR 1.1, glucose 128, calcium 9.1 bilirubin 0.4 AST 44, ALT 67, alkaline phosphatase 52, CRP 14.5, albumin 3.7 Due to the significant extent of the cellulitis including the left axilla and going beyond the elbow and central necrosis admitted for further care and IV antibiotics 06/22: Have a little bit of nausea. Bite with central necrosis seen was cellulitic redness seems to be improving. No longer going to be on his left elbow now. Having some GI discomfort today we will add lactobacillus. 06/23: Ambulating the unit. Vancomycin trough low at 6.9. Cellulitic area decrease seen and still with a central area of necrosis. No fluctuance at wound site. nausea improved. Consults: Infectious disease Left arm cellulitis -very extensive crossing the joint space would fail outpatient antibiotics needs IV vancomycin and continue Unasyn. ID was consulted in the ED. DC home on Augmentin and doxycycline as well as dapsone Spider bite -per patient and a family member who is bilingual they took a picture and this is a brown recluse spider we will start dapsone. Discussed need for G6PD testing with ID. DM2 -unknown A1c Will place on sliding scale insulin HTN - reconcile home meds Transaminitis - no clear etiology, hepatitis panel negative Greater than 30 minutes spent on discharge home with self-care Discharge Information Condition at Discharge: Improved Follow Up: Weeks (1) Disposition/Orders: D/C to Home Scheduled Amoxicillin/Potassium Clav (Augmentin 875-125 Tablet) 1 Each Tablet, 1 TAB PO BID for Cellulitis for 10 Days, #20 Ref 0 Prescribed by: FRANSISCA HAUSER MD on 06/23/21 1214 Dapsone (Dapsone) 25 Mg Tablet, 50 MG PO DAILY for Brown recluse bite for 7 Days, #14 Prescribed by: FRANSISCA HAUSER MD on 06/23/21 1214 Doxycycline Monohydrate (Doxycycline Monohydrate) 100 Mg Capsule, 1 CAP PO BID for Cellulitis for 10 Days, #20 Prescribed by: FRANSISCA HAUSER MD on 06/23/21 1214 Justicifation of Admission Dx: Justifications for Admission: Justification of Admission Dx: Yes FRANSISCA HAUSER MD Jun 23, 2021 12:16
--- NOTE | 2021-06-23 14:13 | NUR ---
Discharge Note: [place] Discharge instructions and discharge home medications reviewed with Patient and a copy given. All questions have been answered and understanding verbalized. The following instructions and handouts were given: follow up information, medication reconciliation, worsening symptoms, education on cellulitis and spider bites. Discontinued lines and drains: Iv discontinued from Right wrist, skin intact. Patient discharged to home with self-care, via personal transportation.
== END 2021-06-23 14:05 | disposition home or self-care (01) | DRG 603 ==
LOC: ER 02:10 → 2 NORTH 04:37
PROVIDERS: ADMIT Internal Medicine; ATTEND Internal Medicine
DX: L03.114 Cellulitis of left upper limb (principal); I10 Essential (primary) hypertension; L03.112 Cellulitis of left axilla; E11.9 Type 2 diabetes mellitus without complications; T63.331A Toxic effect of venom of brown recluse spider, accidental (unintentional), initial encounter; R74.01 Elevation of levels of liver transaminase levels; Y92.89 Other specified places as the place of occurrence of the external cause; Z79.899 Other long term (current) drug therapy
CPT/HCPCS: 36415; 73060; 80053; 80202; 82962; 85025; 85651; 86140; 86705; 86709; 86803; 87040; 87340; 96365; 96366; 96368; 96375; J0295; J1200; J1650; J1815; J1885; J2270; J3370; J7030; J7040; J7060; 99285-25; G0378